=== PATIENT | female | born 1970 | race Asian ===

== ENCOUNTER 2018-05-31 17:22 | Emergency (ER) | payer OTHER ==
[~2018-05-31] VITALS: Ht 154.9 cm; Wt 58.0 kg
[2018-05-31 17:45] VITALS: BP 132/66
== END 2018-05-31 22:14 | disposition left against medical advice (07) ==
LOC: ER 17:22
DX: M77.12 Lateral epicondylitis, left elbow (principal)
CPT/HCPCS: 99281